=== PATIENT | female | born 1995 | race African-American/Black ===

== ENCOUNTER 2017-03-04 16:11 | Emergency (ER) | payer SELFPAY ==
[~2017-03-04] VITALS: Ht 154.9 cm; Wt 68.0 kg
[2017-03-04 16:12] VITALS: BP 129/79; PULSE 88; RESP 20; TEMP 98.5; O2SAT 99
--- NOTE | 2017-03-04 17:04 | PD ---
HPI Chief Complaint: Abdominal Pain Time Seen by Provider: 17:01 Travel History International Travel<30 days: No Contact w/Intl Traveler<30days: No Traveled to known affect area: No History of Present Illness HPI 22 yo female here for evaluation of RLQ abdominal pain and missed period. She states she has had the pain on/off with some nausea and sensation of feeling fatigued for over 3 days. Pain comes and goes and is not continous. No pain today. No vomiting. No urinary or BM issues. Pain is ache and bloating like. No radiation. Never been . Denies discharge or bleeding. No allergies to meds. Has not seen anybody for this. PFS Past Medical History Medical History: Denies Significant Hx Tetanus Vaccination: Unknown ?: Unknown LMP: 01/26/17 Past Surgical History Surgical History: No Previous Surgery Social History Alcohol Use: Yes (occ) Tobacco Use: No Substance Use: No Allergies-Medications (Allergen,Severity, Reaction): Coded Allergies: No Known Allergies (Unverified , 03/04/17) Reported Meds & Prescriptions Reported Meds & Active Scripts Active Plus Iron 29-1 mg ( Vit-Iron Carbonyl) 1 Tab Tab 1 Tab PO DAILY Review of Systems Except as stated in HPI: all other systems reviewed are Neg Physical Exam Narrative GENERAL: SKIN: Warm and dry. HEAD: Atraumatic. Normocephalic. EYES: Pupils equal and round. No scleral icterus. No injection or drainage. ENT: No nasal bleeding or discharge. Mucous membranes pink and moist. Tongue is midline, no uvula deviation NECK: Trachea midline. No JVD. CARDIOVASCULAR: Regular rate and rhythm. RESPIRATORY: No accessory muscle use. Clear to auscultation. Breath sounds equal bilaterally. GASTROINTESTINAL: Abdomen soft, non-tender, nondistended. Hepatic and splenic margins not palpable. Pelvic exam: done with female nurse present. Patient has closed also with no bleeding. Patient does have some yellow greenish discharge coming from the vagina. No fall over noted. Patient does have irritation of the vagina wall. MUSCULOSKELETAL: Extremities without clubbing, cyanosis, or edema. No obvious deformities. Full ROM of the upper and lower extremities bilaterally. 2+ pulses NEUROLOGICAL: Awake and alert. No obvious cranial nerve deficits. Motor grossly within normal limits. Five out of 5 muscle strength in the arms and legs. Normal speech. PSYCHIATRIC: Appropriate mood and affect; insight and judgment normal. Data Data Last Documented VS Vital Signs Date Time Temp Pulse Resp B/P Pulse Ox O2 Delivery O2 Flow Rate FiO2 03/04/17 16:12 98.5 88 20 129/79 99 Room Air Orders Ed Urine Pregnancytest Poc (03/04/17 16:40) Beta Hcg (Quant/Titer) (03/04/17 16:49) Complete Blood Count With Diff (03/04/17 16:49) Basic Metabolic Panel (Bmp) (03/04/17 16:49) Gc And Chlamydia Pcr (03/04/17 16:49) Us Pelvis (Ques Pr/Ect)W Trans (03/04/17 ) Wet Prep Profile (03/04/17 16:49) Urinalysis - C+S If Indicated (03/04/17 16:49) Type And Screen (03/04/17 16:59) Azithromycin Powd Pack (Zithromax Powd P (03/04/17 18:15) Ceftriaxone Inj (Rocephin Inj) (03/04/17 18:15) Lidocaine 1% Inj (50 Ml) (Xylocaine 1% I (03/04/17 18:15) Labs Laboratory Tests Test 03/04/17 03/04/17 03/04/17 16:44 16:47 17:40 White Blood Count 10.7 TH/MM3 Red Blood Count 5.03 MIL/MM3 Hemoglobin 14.2 GM/DL Hematocrit 41.4 % Mean Corpuscular Volume 82.4 FL Mean Corpuscular Hemoglobin 28.2 PG Mean Corpuscular Hemoglobin 34.2 % Concent Red Cell Distribution Width 13.3 % Platelet Count 249 TH/MM3 Mean Platelet Volume 8.4 FL Neutrophils (%) (Auto) 67.5 % Lymphocytes (%) (Auto) 23.8 % Monocytes (%) (Auto) 7.3 % Eosinophils (%) (Auto) 0.9 % Basophils (%) (Auto) 0.5 % Neutrophils # (Auto) 7.2 TH/MM3 Lymphocytes # (Auto) 2.5 TH/MM3 Monocytes # (Auto) 0.8 TH/MM3 Eosinophils # (Auto) 0.1 TH/MM3 Basophils # (Auto) 0.1 TH/MM3 CBC Comment DIFF FINAL Differential Comment Urine Color YELLOW Urine Turbidity CLEAR Urine pH 6.0 Urine Specific [place] 1.016 Urine Protein NEG mg/dL Urine Glucose (UA) NEG mg/dL Urine Ketones NEG mg/dL Urine Occult Blood NEG Urine Nitrite NEG Urine Bilirubin NEG Urine Urobilinogen LESS THAN 2.0 MG/DL Urine Leukocyte Esterase NEG Urine RBC LESS THAN 1 /hpf Urine WBC 2 /hpf Urine Squamous Epithelial 4 /hpf Cells Urine Mucus FEW /lpf Microscopic Urinalysis Comment CULT NOT INDICATED Sodium Level 137 MEQ/L Potassium Level 3.7 MEQ/L Chloride Level 102 MEQ/L Carbon Dioxide Level 25.7 MEQ/L Anion Gap 9 MEQ/L Blood Urea Nitrogen 7 MG/DL Creatinine 0.79 MG/DL Estimat Glomerular Filtration 90 ML/MIN Rate Random Glucose 79 MG/DL Calcium Level 9.1 MG/DL Human Chorionic Gonadotropin, 7883 MIU/ML Quant Blood Type B POSITIVE Antibody Screen NEGATIVE Blood Bank Comment Clue Cells (Wet Prep) NONE SEEN Vaginal Trichomonas (Wet Prep) NONE SEEN Vaginal Yeast (Wet Prep) NONE SEEN MDM Medical Decision Making Medical Screen Exam Complete: Yes Emergency Medical Condition: Yes Medical Record Reviewed: Yes Interpretation(s) CBC & BMP Diagram 03/04/17 16:44 03/04/17 16:47 UA negative wet prep negative Ultrasound showed an IUP Differential Diagnosis ectopic vs vs vaginitis Narrative Course 22 yo female here for RLQ pain and missed period. Patient was properly examined and was found to have signs and symptoms consistent appears to be . Pelvic exam did reveal discharge. Wet prep was negative. This time recommend treating prophylactically for STD. Patient was given shot of Rocephin and azithromycin. Ultrasound showed IUP. Otherwise unremarkable. Patient was pressure. This time I recommend close follow with [facility]. See ED worsening symptoms. Patient was told to take vitamins as well as avoiding certain medications including NSAIDs. Patient agrees and understands. Follow with PCP. Diagnosis Primary Impression: Qualified Code: Z3A.01 - Less than 8 weeks gestation of Additional Impression: Vaginitis Qualified Code: N76.0 - Acute vaginitis Patient Instructions: General Instructions Additional Instructions: Follow up with [facility]. Avoid sex for least 2 weeks and always use protection. Take vitamins. See ED worsening symptoms. Tylenol for pain. Avoid NSAIDS Med/Other Pt SpecificInfo: Prescription(s) given Scripts Vit-Iron Carbonyl ( Plus Iron 29-1 mg)1 Tab Tab1 Tab PO DAILY #30 TAB Ref 0 Prov:Gilberto Barrett MD 03/04/17 Disposition: 01 DISCHARGE HOME Condition: Gasper Omer March 04, 2017 17:04
[2017-03-04 17:12] LABS: AUTOMATED NEUTROPHIL # 7.2 TH/MM3 (1.8-7.7); BASOPHIL # 0.1 TH/MM3 (0-0.2); BASOPHIL % 0.5 % (0.0-2.0); EOSINOPHIL # 0.1 TH/MM3 (0-0.4); EOSINOPHIL % 0.9 % (0.0-4.0); HEMATOCRIT 41.4 % (35.0-46.0); HEMO FLAGS DIFF FINAL; LYMPH % 23.8 % (9.0-44.0); LYMPHOCYTE # 2.5 TH/MM3 (1.0-4.8); MEAN CELL VOLUME 82.4 FL (80.0-100.0); MEAN CORPUSCULAR HEMOGLOBIN 28.2 PG (27.0-34.0); MEAN CORPUSCULAR HGB CONC 34.2 % (32.0-36.0); MONO % 7.3 % (0.0-8.0); NEUT % 67.5 % (16.0-70.0); PLATELET COUNT 249 TH/MM3 (150-450); RED BLOOD COUNT 5.03 MIL/MM3 (4.00-5.30); RED CELL DISTRIBUTION WIDTH 13.3 % (11.6-17.2); WHITE BLOOD COUNT 10.7 TH/MM3 (4.0-11.0)
[2017-03-04 17:21] LABS: BLOOD, URINE NEG (NEG); COMMENT (UR) CULT NOT INDICATED; CULTURE IF INDICATED CULT NOT INDICATED; GLUCOSE,URINE NEG (NEG); KETONE, URINE NEG (NEG); MUCUS URINE FEW /lpf (OCC); NITRITE,URINE NEG (NEG); SQUAMOUS EPITHELIAL CELL URINE 4 /hpf (0-5); URINE COLOR YELLOW (YELLW/STRAW)
[2017-03-04 17:53] LABS: BICARBONATE 25.7 MEQ/L (21.0-32.0); POTASSIUM 3.7 MEQ/L (3.5-5.1)
[2017-03-04] MEDS ORDERED: PREN29TA PO (18:10)
[2017-03-04] MEDS ORDERED: cefTRIAXone 250 MG VIAL IM ONE (18:15)
[2017-03-04] MEDS ORDERED: AZITHROMYCIN PWD FOR SUSP 1 GM PACKET PO ONE (18:15)
[2017-03-04] MEDS ORDERED: LIDOCAINE HCL 1% 50 ML VIAL IM ONE (18:15)
--- NOTE | 2017-03-04 18:53 | RADRPT ---
EXAM DATE/TIME: 03/04/2017 16:58 [facility] COMPARISON: No previous studies available for comparison. INDICATIONS : Pelvic pain. LAB(S): Beta-hC,883 MEDICAL HISTORY : . SURGICAL HISTORY : None. ENCOUNTER: Initial ACUITY: 4-6 days PAIN SCORE: 5/10 LOCATION: Bilateral pelvis MEASUREMENTS: RIGHT OVARY: 4.0 x 3.1 x 2.4cm UTERUS: 11.4 x 7.9 x 4.8 cm ENDOMETRIAL STRIPE: 19 mm LEFT OVARY: 2.5 x 1.7 x 1.8 cm FREE FLUID: Yes posterior cul de sac CROWN RUMP LENGTH: Nonvisualized = WKS DAYS FHR: Nonvisualized BPM FINDINGS: There is an intrauterine with a yolk sac present corresponding to less than 5 week gestatio n. No free fluid is identified. The ovaries are normal in size and shape without evidence of focal ma ss. No adnexal masses are identified. CONCLUSION: 1. Intrauterine less than 5 weeks Jonathan Blandon MD on March 04, 2017 at 18:46 Board Certified Radiologist. This report was verified electronically.
[2017-03-04 20:28] LABS: CHLAMYDIA PCR NOT DETECTED (NOT DETECT); NEISSERIA PCR NOT DETECTED (NOT DETECT)
== END 2017-03-04 19:13 | disposition home or self-care (01) ==
LOC: NEPD 16:11
DX: O26.891 Other specified pregnancy related conditions, first trimester (principal); R10.31 Right lower quadrant pain; R11.0 Nausea; N76.0 Acute vaginitis; Z3A.01 Less than 8 weeks gestation of pregnancy
CPT/HCPCS: 76700; 76817; 80048; 81001; 84702; 84703; 85025; 86850; 86900; 86901; 87210; 87491; 87591; 96372; 99284; J0696